=== PATIENT | male | born 2005 | race Caucasian/White ===

== ENCOUNTER 2023-10-20 11:02 | Outpatient (CLI) | payer OTHER, SELFPAY ==
--- NOTE | 2023-10-20 11:08 | RAD_ITS ---
STUDY: X-RAY - THORACIC SPINE REASON FOR EXAM: Male, 18 years old. Fall TECHNIQUE: 3 view(s) of the thoracic spine were obtained. COMPARISON: None. FINDINGS: Normal kyphosis of the thoracic spine. There is no substantial scoliosis. Normal thoracic vertebrae and endplates. Normal disc space heights. The soft tissue structures are unremarkable. RAD/Thoracic Spine 2 Views IMPRESSION: Normal x-ray examination of the thoracic spine. Electronically Signed: Jorge L Hernandez MD at 11:39 EST ,
== END 2023-10-20 23:59 | disposition home or self-care (01) ==
LOC: MTRAD 11:05
PROVIDERS: Referring Provider Physician Assistant; Visit Provider Physician Assistant
DX: S20.229A Contusion of unspecified back wall of thorax, initial encounter (principal); W19.XXXA Unspecified fall, initial encounter; S29.019A Strain of muscle and tendon of unspecified wall of thorax, initial encounter
CPT/HCPCS: 72070